=== PATIENT | male | born 1965 | race Hispanic/Latino ===

== ENCOUNTER 2020-01-24 07:56 | Outpatient (RCR) | payer OTHER | END 2020-01-26 | LOC: PT 07:56 | PROVIDERS: ATTEND Specialist | DX: M17.12 Unilateral primary osteoarthritis, left knee (principal); M24.662 Ankylosis, left knee | CPT/HCPCS: 97139 ==

== ENCOUNTER 2020-01-29 08:00 | Outpatient (RCR) | payer OTHER | END 2020-02-26 | LOC: PT 08:00 | PROVIDERS: ATTEND Specialist | DX: M17.12 Unilateral primary osteoarthritis, left knee (principal); M24.662 Ankylosis, left knee ==

== ENCOUNTER → 2021-08-25 | Outpatient (CLI) | payer OTHER ==
[~2021-08-25] MED LIST: ALBUTEROL0.63 MG/3 NEB; AMLODIPINE BESYL5 MG PO; FINASTERIDE5 MG PO; FLOMAX0.4 MG PO; IOPAMIDOL 370 MG/ML 200 ML INFUS..BTL INJ ONE; JOINT HEALTH PO; LORATADINE10 MG PO; SIMVASTATIN40 MG PO; SODIUM CHLORIDE 0.9% 50ML 50 ML ONE; SYMBICORT 16010.2 GM INH; TYLENOL EXTRA500 MG PO
[2021-08-25 16:38] LABS: CREATININE, SERUM 0.85 mg/dL (0.72-1.25)
== END ==
LOC: CT 15:36
PROVIDERS: ATTEND Urology
DX: C67.9 Malignant neoplasm of bladder, unspecified (principal)
CPT/HCPCS: 36415; 74178; 82565; 84520; Q9967

== ENCOUNTER → 2021-08-26 | Day surgery (SDC) | payer OTHER ==
[2021-08-24 15:00] LABS: BASOPHILS % 0.3 % (0.0-1.0); EOSINOPHILS # (AUTO) 0.1 (0.0-0.4); EOSINOPHILS % 1.2 % (0.0-6.0); HEMATOCRIT 45.2 % (38.2-49.6); HEMOGLOBIN 15.5 g/dL (14.0-18.0); LYMPHOCYTES # (AUTO) 2.1 (1.0-3.2); LYMPHOCYTES % 17.3 % (18.0-39.1); MEAN CORPUSCULAR HEMOGLOBIN 28.7 pg (28-32); MEAN CORPUSCULAR HGB CONC 34.3 g/dL (31-35); MEAN CORPUSCULAR VOLUME 83.5 fL (81-99); MONOCYTES # (AUTO) 0.8 (0.2-0.8); NEUTROPHILS # (AUTO) 8.7 (2.1-6.9); NEUTROPHILS % 73.4 % (38.7-80.0); PLATELET COUNT 286 x10e3/uL (140-360); RED BLOOD COUNT 5.41 x10e6/uL (4.3-5.7); RED CELL DISTRIBUTION WIDTH 13.7 % (11.7-14.4)
[~2021-08-26] MED LIST changes: +BELLADONNA/OPIUM 30 MG SUPP RC ONE; +IOPAMIDOL 300MG/ML 50ML INFUS..BTL IV ONE; -IOPAMIDOL 370 MG/ML 200 ML INFUS..BTL INJ ONE; +SUGAMMADEX SODIUM 200 MG/2 ML VIAL IV ONE
[2021-08-26 11:25] VITALS: BP 127/78
== END | disposition home or self-care (01) ==
LOC: OR 06:28
PROVIDERS: ATTEND Urology
DX: C67.9 Malignant neoplasm of bladder, unspecified (principal); N40.0 Benign prostatic hyperplasia without lower urinary tract symptoms; N32.89 Other specified disorders of bladder; K21.9 Gastro-esophageal reflux disease without esophagitis; J45.909 Unspecified asthma, uncomplicated; I10 Essential (primary) hypertension; Z01.810 Encounter for preprocedural cardiovascular examination; Z01.812 Encounter for preprocedural laboratory examination; Z01.818 Encounter for other preprocedural examination; Z20.822 Contact with and (suspected) exposure to COVID-19
CPT/HCPCS: 36415; 52005; 52240; 71046; 74420; 85025; 88307; 93005; C1758 ×2; J0690; Q9967; U0002; 88304

== ENCOUNTER 2021-10-26 07:00 | Outpatient (RCR) | payer OTHER ==
[~2021-10-26 07:00] MED LIST changes: -BELLADONNA/OPIUM 30 MG SUPP RC ONE; -IOPAMIDOL 300MG/ML 50ML INFUS..BTL IV ONE; -SODIUM CHLORIDE 0.9% 50ML 50 ML ONE; -SUGAMMADEX SODIUM 200 MG/2 ML VIAL IV ONE
== END 2021-10-27 ==
LOC: PT 07:00
PROVIDERS: ATTEND Specialist
DX: M17.0 Bilateral primary osteoarthritis of knee (principal)

== ENCOUNTER 2021-11-17 08:00 | Outpatient (RCR) | payer OTHER | END 2021-11-27 | LOC: PT 08:00 | PROVIDERS: ATTEND Specialist | DX: M17.0 Bilateral primary osteoarthritis of knee (principal) ==

== ENCOUNTER → 2022-02-10 | Day surgery (SDC) | payer OTHER ==
[~2022-02-10] MED LIST changes: +DEXAMETHASONE SOD PHOS INJ 4 MG/ML SDV ONE; +FENTANYL CITRATE/PF 100MCG/2 ML INJ ONE; +LIDOCAINE HCL 2% LOCAL INJ 5 ML SDV VIAL INJ ONE; +MIDAZOLAM HCL 2 MG/2 ML VIAL ONE; +ONDANSETRON HCL INJ 2MG/ML 2ML 2 MG/ML VIAL ONE; +POVIDONE IODINE 0.05% 0.05 % ML PO ONE; +PROPOFOL IV EMULSION 10 MG/ML 20 ML VIAL ONE; +SEVOFLURANE INHAL SOLN 250 ML PEN BTL ONE; +SODIUM CHLORIDE 0.9% 50ML 50 ML ONE
[2022-02-10 11:30] VITALS: BP 121/92
== END | disposition home or self-care (01) ==
LOC: OR 07:54
PROVIDERS: ATTEND Urology
DX: N20.0 Calculus of kidney (principal); N13.30 Unspecified hydronephrosis; I10 Essential (primary) hypertension; E78.5 Hyperlipidemia, unspecified; R06.02 Shortness of breath; U09.9 Post COVID-19 condition, unspecified; E66.9 Obesity, unspecified; Z01.810 Encounter for preprocedural cardiovascular examination; Z01.812 Encounter for preprocedural laboratory examination; Z20.822 Contact with and (suspected) exposure to COVID-19; Z79.899 Other long term (current) drug therapy
CPT/HCPCS: 74420; 93005; C1758; C1769; C2617; J0690; J1100; J2001; J2250; J2405; J3010; U0002

== ENCOUNTER 2022-02-22 11:42 | Inpatient (IN) | payer OTHER ==
[~2022-02-22] VITALS: Ht 165.1 cm; Wt 98.0 kg
[~2022-02-22 11:42] MED LIST changes: -DEXAMETHASONE SOD PHOS INJ 4 MG/ML SDV ONE; -FENTANYL CITRATE/PF 100MCG/2 ML INJ ONE; -LIDOCAINE HCL 2% LOCAL INJ 5 ML SDV VIAL INJ ONE; -MIDAZOLAM HCL 2 MG/2 ML VIAL ONE; -ONDANSETRON HCL INJ 2MG/ML 2ML 2 MG/ML VIAL ONE; -POVIDONE IODINE 0.05% 0.05 % ML PO ONE; -PROPOFOL IV EMULSION 10 MG/ML 20 ML VIAL ONE; -SEVOFLURANE INHAL SOLN 250 ML PEN BTL ONE; -SODIUM CHLORIDE 0.9% 50ML 50 ML ONE
[2022-02-22] MEDS ORDERED: SODIUM CHLORIDE 0.9% 1000ML 1,000 ML IV STA (12:13)
[2022-02-22] MEDS ORDERED: Morphine 4mg Syringe 4 MG/ML INJ IV STA (12:13)
[2022-02-22] MEDS ORDERED: ONDANSETRON HCL INJ 2MG/ML 2ML 2 MG/ML VIAL IV STA (12:13)
[2022-02-22] MEDS ORDERED: CEFTRIAXONE 1 GM VIAL IM ONE (12:15)
[2022-02-22 12:23] LABS: BASOPHILS % 0.2 % (0.0-1.0); EOSINOPHILS % 0.1 % (0.0-6.0); HEMATOCRIT 45.7 % (38.2-49.6); HEMOGLOBIN 15.8 g/dL (14.0-18.0); LYMPHOCYTES # (AUTO) 0.5 (1.0-3.2); LYMPHOCYTES % 2.3 % (18.0-39.1); MEAN CORPUSCULAR HEMOGLOBIN 29.4 pg (28-32); MEAN CORPUSCULAR HGB CONC 34.6 g/dL (31-35); MEAN CORPUSCULAR VOLUME 85.1 fL (81-99); MONOCYTES # (AUTO) 0.6 (0.2-0.8); MONOCYTES % 2.9 % (4.4-11.3); NEUTROPHILS # (AUTO) 19.4 (2.1-6.9); PLATELET COUNT 196 x10e3/uL (140-360); RED BLOOD COUNT 5.37 x10e6/uL (4.3-5.7); RED CELL DISTRIBUTION WIDTH 14.1 % (11.7-14.4)
[2022-02-22] MEDS ORDERED: CEFTRIAXONE 1 GM in SODIUM CHLORIDE 0.9% 50ML 50 ML IV ONE (12:30)
[2022-02-22 12:31] LABS: INR 1.09; PROTHROMBIN TIME 15.1 seconds (11.9-14.5)
[2022-02-22] MEDS ORDERED: SODIUM CHLORIDE 0.9% 1000ML 1,000 ML ONE (12:36)
[2022-02-22] MEDS ORDERED: Morphine 2mg Syringe 2 MG/ML SYR ONE (12:36)
[2022-02-22] MEDS ORDERED: ONDANSETRON HCL INJ 2MG/ML 2ML 2 MG/ML VIAL ONE (12:36)
[2022-02-22] MEDS ORDERED: CEFTRIAXONE 1 GM VIAL ONE (12:36)
[2022-02-22 12:39] LABS: CLARITY,URINE TURBID (CLEAR); COLOR,URINE BROWN (YELLOW); LEUKOCYTE ESTERASE ,URINE SMALL (NEGATIVE)
[2022-02-22 12:40] LABS: ALBUMIN 3.5 g/dL (3.5-5.0); ALBUMIN/GLOBULIN RATIO 1.1 (0.8-2.0); ANION GAP 11.3 mmol/L (8-16); CALCIUM 8.7 mg/dL (8.4-10.2); CREATININE, SERUM 0.8 mg/dL (0.72-1.25); KETONES,URINE TRACE (NEGATIVE); NITRITE,URINE POSITIVE (NEGATIVE); POTASSIUM 3.3 mmol/L (3.5-5.1); PROTEIN,URINE DIPSTICK >=300 (NEGATIVE); URINE UROBILINOGEN 1 mg/dL (0.2 - 1)
[2022-02-22 12:43] LABS: RBC,URINE >50 /HPF (0-5); WBC,URINE (MAN) >50 /HPF (0-5)
[2022-02-22 12:44] LABS: BACTERIA,URINE MANY /HPF; EPITHELIAL CELLS,URINE FEW /LPF
[2022-02-22] MEDS ORDERED: SODIUM CHLORIDE 0.9% 1000ML 1,000 ML IV SCH ×2 (13:45→14:30)
[2022-02-22] MEDS ORDERED: LEVOFLOXACIN 500MG/D5W 100ML 100 ML IV SCH (14:30)
[2022-02-22 16:15] VITALS: BP 108/82
[2022-02-22 16:30] VITALS: BP 108/82
[2022-02-22] MEDS ORDERED: LEVOFLOXACIN 500MG/D5W 100ML 100 ML IV ONE (17:38)
[2022-02-22] MEDS: Morphine 4mg Syringe 4 MG/ML INJ IV PRN (19:30)
[2022-02-22] MEDS: ONDANSETRON HCL INJ 2MG/ML 2ML 2 MG/ML VIAL IV PRN (19:30)
[2022-02-22 19:58] VITALS: BP 128/96
[2022-02-22 20:30] VITALS: BP 128/96
[2022-02-22] MEDS ORDERED: POTASSIUM CHLORIDE 10MEQ EA PO ONE (20:30)
[2022-02-23] VITALS (9 sets, daily range): BP systolic 114–155; BP diastolic 70–98
[2022-02-23] MEDS: SODIUM CHLORIDE 0.9% 1000ML 1,000 ML IV SCH ×3 (01:02→18:13)
[2022-02-23] MEDS: ACETAMINOPHEN 325 MG TAB PO PRN ×2 (04:30→21:04)
[2022-02-23 05:02] LABS: BASOPHILS # (AUTO) 0.1 (0.0-0.1); BASOPHILS % 0.3 % (0.0-1.0); EOSINOPHILS # (AUTO) 0.1 (0.0-0.4); EOSINOPHILS % 0.3 % (0.0-6.0); HEMATOCRIT 43.8 % (38.2-49.6); HEMOGLOBIN 15.1 g/dL (14.0-18.0); LYMPHOCYTES # (AUTO) 0.9 (1.0-3.2); LYMPHOCYTES % 3.8 % (18.0-39.1); MEAN CORPUSCULAR HEMOGLOBIN 29.4 pg (28-32); MEAN CORPUSCULAR HGB CONC 34.5 g/dL (31-35); MEAN CORPUSCULAR VOLUME 85.2 fL (81-99); MONOCYTES # (AUTO) 1.2 (0.2-0.8); MONOCYTES % 5.2 % (4.4-11.3); NEUTROPHILS # (AUTO) 20.6 (2.1-6.9); NEUTROPHILS % 89.3 % (38.7-80.0); PLATELET COUNT 197 x10e3/uL (140-360); RED BLOOD COUNT 5.14 x10e6/uL (4.3-5.7); RED CELL DISTRIBUTION WIDTH 14.2 % (11.7-14.4)
[2022-02-23 05:30] LABS: ALBUMIN 3.2 g/dL (3.5-5.0); ALBUMIN/GLOBULIN RATIO 0.9 (0.8-2.0); ANION GAP 14.6 mmol/L (8-16); CALCIUM 9.1 mg/dL (8.4-10.2); CREATININE, SERUM 0.82 mg/dL (0.72-1.25); POTASSIUM 3.6 mmol/L (3.5-5.1)
[2022-02-23] MEDS ORDERED: CALCIUM GLUC 1 G/50 ML NACL 50 ML IV ONE (06:15)
[2022-02-23] MEDS ORDERED: ACETAMINOPHEN 325 MG TAB PO PRN (09:00)
[2022-02-23] MEDS ORDERED: BUDESONIDE/FORMOTEROL 160/4.5MCG INHALER INH PRN (09:00)
[2022-02-23] MEDS ORDERED: ALBUTEROL SULF 0.083% NEB SOLN 3 ML NEB NEB PRN (09:00)
[2022-02-23] MEDS ORDERED: PHENAZOPYRIDINE HCL 100 MG TAB PO PRN (09:30)
[2022-02-23] MEDS: LORATADINE 10 MG TAB PO SCH (10:13)
[2022-02-23] MEDS: FINASTERIDE 5 MG TAB PO SCH (10:13)
[2022-02-23] MEDS: CEFTRIAXONE 1 GM in SODIUM CHLORIDE 0.9% 50ML 50 ML IV SCH (10:13)
[2022-02-23] MEDS: TAMSULOSIN HCL 0.4 MG CAP PO SCH (10:13)
[2022-02-23] MEDS: AMLODIPINE BESYLATE 5 MG TAB PO SCH ×2 (10:13→18:13)
[2022-02-23] MEDS: Morphine 4mg Syringe 4 MG/ML INJ IV PRN (19:20)
[2022-02-23] MEDS: ONDANSETRON HCL INJ 2MG/ML 2ML 2 MG/ML VIAL IV PRN (19:20)
[2022-02-23] MEDS: SIMVASTATIN 40 MG TAB PO SCH (21:04)
[2022-02-24] VITALS (8 sets, daily range): BP systolic 99–136; BP diastolic 60–97
[2022-02-24] MEDS: SODIUM CHLORIDE 0.9% 1000ML 1,000 ML IV SCH ×3 (02:13→17:15)
[2022-02-24] MEDS: Morphine 4mg Syringe 4 MG/ML INJ IV PRN ×5 (02:13→19:50)
[2022-02-24] MEDS: ACETAMINOPHEN 325 MG TAB PO PRN ×4 (02:13→20:27)
[2022-02-24 04:58] LABS: BASOPHILS % 0.3 % (0.0-1.0); EOSINOPHILS % 0.1 % (0.0-6.0); HEMATOCRIT 40.6 % (38.2-49.6); HEMOGLOBIN 13.8 g/dL (14.0-18.0); LYMPHOCYTES % 9.2 % (18.0-39.1); MEAN CORPUSCULAR HEMOGLOBIN 29.3 pg (28-32); MEAN CORPUSCULAR VOLUME 86.2 fL (81-99); MONOCYTES # (AUTO) 0.9 (0.2-0.8); MONOCYTES % 8.2 % (4.4-11.3); NEUTROPHILS % 81.3 % (38.7-80.0); PLATELET COUNT 174 x10e3/uL (140-360); RED BLOOD COUNT 4.71 x10e6/uL (4.3-5.7); RED CELL DISTRIBUTION WIDTH 14.4 % (11.7-14.4)
[2022-02-24] MEDS: CEFTRIAXONE 1 GM in SODIUM CHLORIDE 0.9% 50ML 50 ML IV SCH (09:05)
[2022-02-24] MEDS: AMLODIPINE BESYLATE 5 MG TAB PO SCH ×2 (09:05→17:00)
[2022-02-24] MEDS: TAMSULOSIN HCL 0.4 MG CAP PO SCH (09:05)
[2022-02-24] MEDS: LORATADINE 10 MG TAB PO SCH (09:05)
[2022-02-24] MEDS: FINASTERIDE 5 MG TAB PO SCH (09:05)
[2022-02-24] MEDS: SIMVASTATIN 40 MG TAB PO SCH (20:26)
[2022-02-25] VITALS (7 sets, daily range): BP systolic 106–154; BP diastolic 69–96
[2022-02-25] MEDS: Morphine 4mg Syringe 4 MG/ML INJ IV PRN ×2 (01:20→09:25)
[2022-02-25] MEDS: ACETAMINOPHEN 325 MG TAB PO PRN ×3 (02:27→20:20)
[2022-02-25] MEDS: SODIUM CHLORIDE 0.9% 1000ML 1,000 ML IV SCH (03:00)
[2022-02-25 04:59] LABS: BASOPHILS # (AUTO) 0.1 (0.0-0.1); BASOPHILS % 0.7 % (0.0-1.0); EOSINOPHILS # (AUTO) 0.1 (0.0-0.4); EOSINOPHILS % 0.7 % (0.0-6.0); HEMATOCRIT 42.1 % (38.2-49.6); HEMOGLOBIN 14.3 g/dL (14.0-18.0); LYMPHOCYTES # (AUTO) 1.5 (1.0-3.2); LYMPHOCYTES % 18.9 % (18.0-39.1); MEAN CORPUSCULAR HEMOGLOBIN 28.9 pg (28-32); MEAN CORPUSCULAR VOLUME 85.2 fL (81-99); MONOCYTES # (AUTO) 0.9 (0.2-0.8); MONOCYTES % 11.8 % (4.4-11.3); NEUTROPHILS # (AUTO) 5.1 (2.1-6.9); NEUTROPHILS % 66.5 % (38.7-80.0); PLATELET COUNT 179 x10e3/uL (140-360); RED BLOOD COUNT 4.94 x10e6/uL (4.3-5.7); RED CELL DISTRIBUTION WIDTH 14.4 % (11.7-14.4)
[2022-02-25] MEDS ORDERED: GENTAMICIN 120MG/NS 100ML 100 ML IV ONE ×2 (07:30→10:30)
[2022-02-25] MEDS: LORATADINE 10 MG TAB PO SCH (08:56)
[2022-02-25] MEDS: TAMSULOSIN HCL 0.4 MG CAP PO SCH (08:56)
[2022-02-25] MEDS: FINASTERIDE 5 MG TAB PO SCH (08:56)
[2022-02-25] MEDS: AMLODIPINE BESYLATE 5 MG TAB PO SCH ×2 (08:56→17:18)
[2022-02-25] MEDS ORDERED: LISINOPRIL 10 MG TAB PO SCH (09:00)
[2022-02-25] MEDS: CEFTRIAXONE 1 GM in SODIUM CHLORIDE 0.9% 50ML 50 ML IV SCH (09:10)
[2022-02-25] MEDS: SIMVASTATIN 40 MG TAB PO SCH (20:21)
[2022-02-26] VITALS (8 sets, daily range): BP systolic 117–127; BP diastolic 77–98
[2022-02-26] MEDS: TAMSULOSIN HCL 0.4 MG CAP PO SCH (09:00)
[2022-02-26] MEDS: LORATADINE 10 MG TAB PO SCH (09:00)
[2022-02-26] MEDS: AMLODIPINE BESYLATE 5 MG TAB PO SCH ×2 (09:00→16:19)
[2022-02-26] MEDS: FINASTERIDE 5 MG TAB PO SCH (09:00)
[2022-02-26] MEDS: CEFTRIAXONE 1 GM in SODIUM CHLORIDE 0.9% 50ML 50 ML IV SCH (09:13)
[2022-02-26] MEDS ORDERED: LIDOCAINE HCL 2% LOCAL INJ 5 ML SDV VIAL INJ ONE (12:08)
[2022-02-26] MEDS ORDERED: POVIDONE IODINE 0.05% 0.05 % ML PO ONE (12:08)
[2022-02-26] MEDS ORDERED: SEVOFLURANE INHAL SOLN 250 ML PEN BTL ONE (12:08)
[2022-02-26] MEDS ORDERED: ONDANSETRON HCL INJ 2MG/ML 2ML 2 MG/ML VIAL ONE (12:08)
[2022-02-26] MEDS ORDERED: KETOROLAC TROMETHAMINE 30 MG/ML VIAL ONE (12:08)
[2022-02-26] MEDS ORDERED: PROPOFOL IV EMULSION 10 MG/ML 20 ML VIAL ONE (12:08)
[2022-02-26] MEDS ORDERED: ONDANSETRON HCL 4 MG ORAL DISINTEGRATING TAB PO PRN (13:15)
[2022-02-26] MEDS: Morphine 4mg Syringe 4 MG/ML INJ IV PRN (20:55)
[2022-02-26] MEDS: SIMVASTATIN 40 MG TAB PO SCH (21:00)
[2022-02-27] VITALS (7 sets, daily range): BP systolic 111–127; BP diastolic 79–96
[2022-02-27] MEDS ORDERED: BELLADONNA/OPIUM 30 MG SUPP RC ONE (07:31)
[2022-02-27] MEDS ORDERED: IOPAMIDOL 300MG/ML 50ML INFUS..BTL IV ONE (07:31)
[2022-02-27] MEDS ORDERED: ACETAMINOPHEN 1000 MG/100 ML 100 ML IV ONE (08:33)
[2022-02-27] MEDS: TAMSULOSIN HCL 0.4 MG CAP PO SCH ×2 (08:44→09:46)
[2022-02-27] MEDS: AMLODIPINE BESYLATE 5 MG TAB PO SCH ×3 (08:44→16:10)
[2022-02-27] MEDS: LORATADINE 10 MG TAB PO SCH ×2 (08:44→09:46)
[2022-02-27] MEDS: FINASTERIDE 5 MG TAB PO SCH ×2 (08:44→09:46)
[2022-02-27] MEDS: CEFTRIAXONE 1 GM in SODIUM CHLORIDE 0.9% 50ML 50 ML IV SCH (09:46)
[2022-02-27] MEDS ORDERED: KEFLEX125 MG/5 M PO (14:55)
[2022-02-27] MEDS ORDERED: FENTANYL CITRATE/PF 100MCG/2 ML INJ ONE (17:42)
[2022-02-27] MEDS ORDERED: MIDAZOLAM HCL 2 MG/2 ML VIAL ONE (17:42)
== END 2022-02-27 16:39 | disposition home or self-care (01) | DRG 854 ==
LOC: ER 12:13 → ERHOLD 14:28 → MED/SURG2 16:09
PROVIDERS: ADMIT Internal Medicine; ATTEND Internal Medicine
PROC: 3E03329 Introduction of Other Anti-infective into Peripheral Vein, Percutaneous Approach (ICD-10-PCS; 2022-02-22)
PROC: BT1F1ZZ Fluoroscopy of Left Kidney, Ureter and Bladder using Low Osmolar Contrast (ICD-10-PCS; 2022-02-27)
PROC: 0TP98DZ Removal of Intraluminal Device from Ureter, Via Natural or Artificial Opening Endoscopic (ICD-10-PCS; principal; 2022-02-27 08:06)
PROC: 0W3R8ZZ Control Bleeding in Genitourinary Tract, Via Natural or Artificial Opening Endoscopic (ICD-10-PCS; 2022-02-27 08:06)
DX: A41.51 Sepsis due to Escherichia coli [E. coli] (principal); N39.0 Urinary tract infection, site not specified; T83.593A Infection and inflammatory reaction due to other urinary stents, initial encounter; R31.9 Hematuria, unspecified; N40.0 Benign prostatic hyperplasia without lower urinary tract symptoms; E78.5 Hyperlipidemia, unspecified; E87.6 Hypokalemia; Z85.51 Personal history of malignant neoplasm of bladder; E66.01 Morbid (severe) obesity due to excess calories; Z68.39 Body mass index [BMI] 39.0-39.9, adult; K52.9 Noninfective gastroenteritis and colitis, unspecified; K76.0 Fatty (change of) liver, not elsewhere classified; Z96.0 Presence of urogenital implants; Z20.822 Contact with and (suspected) exposure to COVID-19
CPT/HCPCS: 36415; 71045; 74176; 74420; 80053; 81001; 83605; 85025; 85610; 85730; 87040; 87071; 87086; 87186; 87205; 88305; 88307; 93005; 94799; 96361; 99284; C1758; J0696; J1580; J1885; J1956; J2001; J2250; J2270; J2405; J3010; J7030; U0002

== ENCOUNTER 2022-05-01 03:59 | Observation (INO) | payer OTHER ==
[~2022-05-01] VITALS: Ht 165.1 cm; Wt 98.0 kg
[2022-05-01] VITALS (9 sets, daily range): BP systolic 104–126; BP diastolic 73–89
[~2022-05-01 03:59] MED LIST changes: +KEFLEX125 MG/5 M PO
[2022-05-01] MEDS ORDERED: SODIUM CHLORIDE 0.9% 1000ML 1,000 ML IV ONE (04:15)
[2022-05-01 04:25] LABS: BASOPHILS % 0.2 % (0.0-1.0); EOSINOPHILS % 0.2 % (0.0-6.0); HEMATOCRIT 45.3 % (38.2-49.6); HEMOGLOBIN 15.3 g/dL (14.0-18.0); LYMPHOCYTES # (AUTO) 1.1 (1.0-3.2); LYMPHOCYTES % 5.8 % (18.0-39.1); MEAN CORPUSCULAR HEMOGLOBIN 29.3 pg (28-32); MEAN CORPUSCULAR HGB CONC 33.8 g/dL (31-35); MEAN CORPUSCULAR VOLUME 86.6 fL (81-99); MONOCYTES # (AUTO) 1.3 (0.2-0.8); MONOCYTES % 7.1 % (4.4-11.3); NEUTROPHILS # (AUTO) 16.3 (2.1-6.9); NEUTROPHILS % 85.9 % (38.7-80.0); PLATELET COUNT 193 x10e3/uL (140-360); RED BLOOD COUNT 5.23 x10e6/uL (4.3-5.7); RED CELL DISTRIBUTION WIDTH 14.1 % (11.7-14.4)
[2022-05-01 04:30] LABS: CLARITY,URINE CLOUDY (CLEAR); COLOR,URINE YELLOW (YELLOW); KETONES,URINE NEGATIVE (NEGATIVE); LEUKOCYTE ESTERASE ,URINE LARGE (NEGATIVE); NITRITE,URINE NEGATIVE (NEGATIVE); PROTEIN,URINE DIPSTICK 2+ (NEGATIVE); URINE UROBILINOGEN 0.2 mg/dL (0.2 - 1)
[2022-05-01 04:35] LABS: BACTERIA,URINE MODERATE /HPF; EPITHELIAL CELLS,URINE RARE /LPF; WBC,URINE (MAN) >50 /HPF (0-5)
[2022-05-01] MEDS ORDERED: SODIUM CHLORIDE 0.9% 1000ML 1,000 ML ONE (04:42)
[2022-05-01 04:44] LABS: ALBUMIN 3.7 g/dL (3.5-5.0); ALBUMIN/GLOBULIN RATIO 1.2 (0.8-2.0); ANION GAP 14.1 mmol/L (8-16); CALCIUM 8.7 mg/dL (8.4-10.2); CREATININE, SERUM 0.9 mg/dL (0.72-1.25); POTASSIUM 3.1 mmol/L (3.5-5.1)
[2022-05-01] MEDS ORDERED: ONDANSETRON HCL INJ 2MG/ML 2ML 2 MG/ML VIAL IV PRN (04:45)
[2022-05-01] MEDS: SODIUM CHLORIDE 0.9% 1000ML 1,000 ML IV SCH ×3 (04:45→22:38)
[2022-05-01] MEDS ORDERED: ACETAMINOPHEN 325 MG TAB PO PRN (04:45)
[2022-05-01] MEDS ORDERED: AMLODIPINE BESY10 MG PO (08:15)
[2022-05-01] MEDS ORDERED: MELATONIN 3 MG TAB PO PRN (13:30)
[2022-05-01] MEDS ORDERED: DOCUSATE SODIUM LIQD 100 MG/10 ML UDC NG PRN (13:30)
[2022-05-01] MEDS ORDERED: DOCUSATE SODIUM LIQD 100 MG/10 ML UDC NG ONE ×2 (14:00→18:00)
[2022-05-02] VITALS (7 sets, daily range): BP systolic 112–150; BP diastolic 78–93
[2022-05-02 06:50] LABS: BASOPHILS % 0.1 % (0.0-1.0); EOSINOPHILS # (AUTO) 0.2 (0.0-0.4); HEMOGLOBIN 13.9 g/dL (14.0-18.0); LYMPHOCYTES # (AUTO) 2.4 (1.0-3.2); LYMPHOCYTES % 11.7 % (18.0-39.1); MEAN CORPUSCULAR HEMOGLOBIN 29.3 pg (28-32); MEAN CORPUSCULAR HGB CONC 33.1 g/dL (31-35); MEAN CORPUSCULAR VOLUME 88.4 fL (81-99); MONOCYTES # (AUTO) 1.5 (0.2-0.8); MONOCYTES % 7.3 % (4.4-11.3); NEUTROPHILS # (AUTO) 16.1 (2.1-6.9); NEUTROPHILS % 79.4 % (38.7-80.0); PLATELET COUNT 199 x10e3/uL (140-360); RED BLOOD COUNT 4.75 x10e6/uL (4.3-5.7); RED CELL DISTRIBUTION WIDTH 14.6 % (11.7-14.4)
[2022-05-02 07:18] LABS: ALBUMIN/GLOBULIN RATIO 0.9 (0.8-2.0); ANION GAP 13.5 mmol/L (8-16); CALCIUM 8.1 mg/dL (8.4-10.2); CREATININE, SERUM 0.72 mg/dL (0.72-1.25); POTASSIUM 3.5 mmol/L (3.5-5.1)
[2022-05-02] MEDS: SODIUM CHLORIDE 0.9% 1000ML 1,000 ML IV SCH ×3 (08:16→18:42)
[2022-05-03] VITALS: BP 127/81
[2022-05-03 04:00] VITALS: BP 101/64
[2022-05-03 06:01] LABS: BASOPHILS # (AUTO) 0.1 (0.0-0.1); BASOPHILS % 0.4 % (0.0-1.0); EOSINOPHILS # (AUTO) 0.2 (0.0-0.4); EOSINOPHILS % 1.3 % (0.0-6.0); HEMATOCRIT 42.5 % (38.2-49.6); HEMOGLOBIN 14.1 g/dL (14.0-18.0); LYMPHOCYTES # (AUTO) 2.2 (1.0-3.2); LYMPHOCYTES % 18.8 % (18.0-39.1); MEAN CORPUSCULAR HEMOGLOBIN 29.2 pg (28-32); MEAN CORPUSCULAR HGB CONC 33.2 g/dL (31-35); MONOCYTES % 8.7 % (4.4-11.3); NEUTROPHILS # (AUTO) 8.4 (2.1-6.9); NEUTROPHILS % 69.9 % (38.7-80.0); PLATELET COUNT 217 x10e3/uL (140-360); RED BLOOD COUNT 4.83 x10e6/uL (4.3-5.7); RED CELL DISTRIBUTION WIDTH 14.6 % (11.7-14.4)
[2022-05-03 06:25] LABS: ANION GAP 12.5 mmol/L (8-16); CALCIUM 8.7 mg/dL (8.4-10.2); CREATININE, SERUM 0.76 mg/dL (0.72-1.25); POTASSIUM 3.5 mmol/L (3.5-5.1)
[2022-05-03] MEDS: SODIUM CHLORIDE 0.9% 1000ML 1,000 ML IV SCH (06:49)
[2022-05-03 08:06] VITALS: BP 114/89
[2022-05-03 08:28] VITALS: BP 114/89
[2022-05-03] MEDS ORDERED: PSYLLIUM 6GM PACKET PO SCH (09:00)
[2022-05-03] MEDS ORDERED: ACETAMINOPHEN325 M1 PO (11:52)
[2022-05-03] MEDS ORDERED: CEFUROXIME500 MG PO (11:52)
== END 2022-05-03 12:40 | disposition home or self-care (01) ==
LOC: ER 04:03 → ERHOLD 04:46 → INTOOBSV 04:46 → MED/SURG2 06:29
PROVIDERS: ADMIT Internal Medicine; ATTEND Internal Medicine
DX: C67.9 Malignant neoplasm of bladder, unspecified (principal); R31.0 Gross hematuria; N40.0 Benign prostatic hyperplasia without lower urinary tract symptoms; N20.0 Calculus of kidney; E66.9 Obesity, unspecified; Z68.35 Body mass index [BMI] 35.0-35.9, adult; N39.0 Urinary tract infection, site not specified; B96.20 Unspecified Escherichia coli [E. coli] as the cause of diseases classified elsewhere; E87.6 Hypokalemia; Z20.822 Contact with and (suspected) exposure to COVID-19
CPT/HCPCS: 36415; 71045; 74176; 80048; 80053; 81001; 83605; 85025; 87040; 87086; 87186; 94799; 96360; 96361; 99284; G0378; J0696; J2543; J7030

== ENCOUNTER 2022-08-18 23:19 | Emergency (ER) | payer OTHER ==
[~2022-08-18] VITALS: Ht 165.1 cm; Wt 99.8 kg
[~2022-08-18 23:19] MED LIST changes: +ACETAMINOPHEN325 M1 PO; +AMLODIPINE BESY10 MG PO; +CEFUROXIME500 MG PO
[2022-08-18] MEDS ORDERED: KETOROLAC TROMETHAMINE 30 MG/ML VIAL IV STA (23:44)
[2022-08-18 23:58] LABS: BASOPHILS % 0.5 % (0.0-1.0); EOSINOPHILS # (AUTO) 0.3 (0.0-0.4); EOSINOPHILS % 3.1 % (0.0-6.0); HEMATOCRIT 44.1 % (38.2-49.6); HEMOGLOBIN 14.9 g/dL (14.0-18.0); LYMPHOCYTES # (AUTO) 2.8 (1.0-3.2); LYMPHOCYTES % 32.6 % (18.0-39.1); MEAN CORPUSCULAR HEMOGLOBIN 29.4 pg (28-32); MEAN CORPUSCULAR HGB CONC 33.8 g/dL (31-35); MONOCYTES # (AUTO) 0.7 (0.2-0.8); MONOCYTES % 8.1 % (4.4-11.3); NEUTROPHILS # (AUTO) 4.8 (2.1-6.9); NEUTROPHILS % 55.4 % (38.7-80.0); PLATELET COUNT 237 x10e3/uL (140-360); RED BLOOD COUNT 5.07 x10e6/uL (4.3-5.7); RED CELL DISTRIBUTION WIDTH 13.8 % (11.7-14.4)
[2022-08-19 00:01] LABS: CLARITY,URINE CLEAR (CLEAR); COLOR,URINE YELLOW (YELLOW); KETONES,URINE TRACE (NEGATIVE); LEUKOCYTE ESTERASE ,URINE NEGATIVE (NEGATIVE); NITRITE,URINE NEGATIVE (NEGATIVE); PROTEIN,URINE DIPSTICK NEGATIVE (NEGATIVE); URINE UROBILINOGEN 0.2 mg/dL (0.2 - 1)
[2022-08-19 00:05] LABS: BACTERIA,URINE RARE /HPF; EPITHELIAL CELLS,URINE MODERATE /LPF; RBC,URINE 0-5 /HPF (0-5)
[2022-08-19 00:15] LABS: ANION GAP 18.7 mmol/L (8-16); CALCIUM 9.2 mg/dL (8.4-10.2); CREATININE, SERUM 1.02 mg/dL (0.72-1.25); POTASSIUM 3.7 mmol/L (3.5-5.1)
[2022-08-19 01:01] VITALS: BP 128/81
[2022-08-19] MEDS ORDERED: CEFDINIR300 MG PO (01:01)
== END 2022-08-19 01:10 | disposition home or self-care (01) ==
LOC: ER 23:31
DX: R10.30 Lower abdominal pain, unspecified (principal); N20.0 Calculus of kidney; N39.0 Urinary tract infection, site not specified
CPT/HCPCS: 36415; 74176; 80048; 81001; 85025; 99284; J1885

== ENCOUNTER 2022-10-30 02:04 | Emergency (ER) | payer OTHER ==
[~2022-10-30] VITALS: Ht 165.1 cm; Wt 99.8 kg
[~2022-10-30 02:04] MED LIST changes: +CEFDINIR300 MG PO
[2022-10-30] MEDS ORDERED: CIPRO HC OTIC S10 ML RIGHT EAR (02:40)
[2022-10-30] MEDS ORDERED: CEFDINIR300 MG PO (02:40)
== END 2022-10-30 02:54 | disposition home or self-care (01) ==
LOC: ER 02:30
DX: J02.9 Acute pharyngitis, unspecified (principal); H66.91 Otitis media, unspecified, right ear; H60.91 Unspecified otitis externa, right ear; I10 Essential (primary) hypertension; N40.0 Benign prostatic hyperplasia without lower urinary tract symptoms; E78.5 Hyperlipidemia, unspecified; Z79.899 Other long term (current) drug therapy; Z85.51 Personal history of malignant neoplasm of bladder; Z87.442 Personal history of urinary calculi; Z87.440 Personal history of urinary (tract) infections; Z87.891 Personal history of nicotine dependence
CPT/HCPCS: 99282

== ENCOUNTER 2024-01-03 19:33 | Emergency (ER) | payer OTHER ==
[~2024-01-03] VITALS: Ht 165.1 cm; Wt 97.1 kg
[~2024-01-03 19:33] MED LIST changes: +CIPRO HC OTIC S10 ML RIGHT EAR; +NAPROXEN250 MG PO
[2024-01-03 20:10] LABS: BASOPHILS % 0.2 % (0.0-1.0); EOSINOPHILS # (AUTO) 0.1 (0.0-0.4); EOSINOPHILS % 0.3 % (0.0-6.0); HEMATOCRIT 43.1 % (38.2-49.6); HEMOGLOBIN 14.4 g/dL (14.0-18.0); LYMPHOCYTES % 12.1 % (18.0-39.1); MEAN CORPUSCULAR HEMOGLOBIN 29.2 pg (28-32); MEAN CORPUSCULAR HGB CONC 33.4 g/dL (31-35); MEAN CORPUSCULAR VOLUME 87.4 fL (81-99); MONOCYTES # (AUTO) 1.4 (0.2-0.8); MONOCYTES % 8.2 % (4.4-11.3); NEUTROPHILS # (AUTO) 12.9 (2.1-6.9); NEUTROPHILS % 78.9 % (38.7-80.0); PLATELET COUNT 231 x10e3/uL (140-360); RED BLOOD COUNT 4.93 x10e6/uL (4.3-5.7); RED CELL DISTRIBUTION WIDTH 14.1 % (11.7-14.4); WHITE BLOOD COUNT 16.41 x10e3/uL (4.8-10.8)
[2024-01-03 20:14] LABS: BILIRUBIN,URINE NEGATIVE (NEGATIVE); CLARITY,URINE CLEAR (CLEAR); COLOR,URINE YELLOW (YELLOW); GLUCOSE, URINE NEGATIVE (NEGATIVE); KETONES,URINE NEGATIVE (NEGATIVE); LEUKOCYTE ESTERASE ,URINE NEGATIVE (NEGATIVE); NITRITE,URINE NEGATIVE (NEGATIVE); PH,URINE 6 (5 - 7); PROTEIN,URINE DIPSTICK NEGATIVE (NEGATIVE); URINE UROBILINOGEN 0.2 mg/dL (0.2 - 1)
[2024-01-03 20:23] LABS: WBC,URINE (MAN) 0-5 /HPF (0-5)
[2024-01-03 20:33] LABS: ALBUMIN 3.7 g/dL (3.5-5.0); ALBUMIN/GLOBULIN RATIO 1.2 (0.8-2.0); ANION GAP 13.4 mmol/L (8-16); BILIRUBIN,TOTAL 0.5 mg/dL (0.2-1.2); CALCIUM 8.8 mg/dL (8.4-10.2); CREATININE, SERUM 0.97 mg/dL (0.72-1.25); TOTAL PROTEIN 6.7 g/dL (6.5-8.1)
[2024-01-03 20:35] LABS: POTASSIUM 3.4 mmol/L (3.5-5.1)
[2024-01-03] MEDS: ONDANSETRON HCL INJ 2MG/ML 2ML 2 MG/ML VIAL IV STA (20:53)
[2024-01-03] MEDS: SODIUM CHLORIDE 0.9% 1000ML 1,000 ML IV STA (20:53)
[2024-01-03] MEDS: KETOROLAC TROMETHAMINE 30 MG/ML VIAL IV STA (20:56)
[2024-01-03 22:59] VITALS: O2SAT 98
== END 2024-01-03 23:13 | disposition home or self-care (01) ==
LOC: ER 19:39
DX: R30.0 Dysuria (principal); N39.0 Urinary tract infection, site not specified; D72.829 Elevated white blood cell count, unspecified; R10.30 Lower abdominal pain, unspecified; I10 Essential (primary) hypertension; E78.5 Hyperlipidemia, unspecified; Z85.51 Personal history of malignant neoplasm of bladder
CPT/HCPCS: 36415; 74176; 80053; 81001; 83690; 85025; 99284; J1885; J2405; J7030

== ENCOUNTER → 2024-10-01 | Day surgery (SDC) | payer OTHER ==
[2024-09-26 09:24] LABS: BASOPHILS # (AUTO) 0.1 (0.0-0.1); BASOPHILS % 0.6 % (0.0-1.0); EOSINOPHILS # (AUTO) 0.2 (0.0-0.4); HEMATOCRIT 50.3 % (38.2-49.6); HEMOGLOBIN 16.5 g/dL (14.0-18.0); LYMPHOCYTES # (AUTO) 1.9 (1.0-3.2); LYMPHOCYTES % 22.2 % (18.0-39.1); MEAN CORPUSCULAR HEMOGLOBIN 29.3 pg (28-32); MEAN CORPUSCULAR HGB CONC 32.8 g/dL (31-35); MEAN CORPUSCULAR VOLUME 89.2 fL (81-99); MONOCYTES # (AUTO) 0.6 (0.2-0.8); MONOCYTES % 6.9 % (4.4-11.3); NEUTROPHILS # (AUTO) 5.7 (2.1-6.9); NEUTROPHILS % 67.9 % (38.7-80.0); PLATELET COUNT 218 x10e3/uL (140-360); RED BLOOD COUNT 5.64 x10e6/uL (4.3-5.7); RED CELL DISTRIBUTION WIDTH 14.6 % (11.7-14.4); WHITE BLOOD COUNT 8.32 x10e3/uL (4.8-10.8)
[2024-09-26 14:48] LABS: ANION GAP 17.5 mmol/L (8-16); CALCIUM 9.7 mg/dL (8.4-10.2); CREATININE, SERUM 0.79 mg/dL (0.72-1.25); POTASSIUM 3.5 mmol/L (3.5-5.1)
[~2024-10-01] MED LIST changes: +ACETAMINOPHEN 1000 MG/100 ML IV PRN; +ASPIRIN 325 MG TAB PO SCH; +ASPIRIN81 MG PO; +CELECOXIB 100 MG CAP PO SCH; +DIPHENHYDRAMINE HCL INJ 50 MG/ML VIAL IV PRN; +DOCUSATE SODIUM 100 MG CAP PO PRN; +HYDROCHLOROTHIA25 MG PO; +HYDROCODONE/APAP 5MG-325MG TAB PO PRN; +HYDROCODONE/APAP 7.5MG-325MG 1 EA TAB PO PRN; +LEVOTHYROXINE50 MCG PO; +LIPITOR10 MG PO; +METFORMIN HCL500 MG PO; +ONDANSETRON HCL INJ 2MG/ML 2ML 2 MG/ML VIAL IV PRN; +PANTOPRAZOLE SO40 MG PO; +ROPIVACAINE/EPI/CLONIDINE/KET 50 ML SYRINGE INJ ONE; +SODIUM CHLORIDE 0.9% 1000ML 1,000 ML IV SCH; +SODIUM CHLORIDE 0.9% 500ML 500 ML ONE; +TRANEXAMIC ACID 20 ML ONE; +Vancomycin IV 500 MG ONE
[2024-10-01] MEDS: GABAPENTIN 300 MG CAP ONE (09:10)
[2024-10-01] MEDS: CELECOXIB 200 MG CAP ONE (09:10)
[2024-10-01] MEDS: CEFAZOLIN SODIUM 2 GM ONE (09:11)
[2024-10-01] MEDS: DEXAMETHASONE SOD PHOS 10 MG/1 ML VIAL ONE (09:11)
[2024-10-01] MEDS: LACTATED RINGER'S 1,000 ML ONE (09:12)
[2024-10-01] MEDS: ACETAMINOPHEN 1000 MG/100 ML 100 ML IV ONE (12:52)
[2024-10-01] MEDS: FENTANYL CITRATE/PF 100MCG/2 ML INJ ONE (13:00)
[2024-10-01 13:20] VITALS: TEMP 97
[2024-10-01 14:00] VITALS: BP 135/77; RESP 18; O2SAT 97
[2024-10-01] MEDS: HYDROCODONE/APAP 7.5MG-325MG 1 EA TAB PO ONE (14:00)
== END | disposition home health service (06) ==
LOC: OR 08:19
PROVIDERS: ATTEND Specialist
DX: M17.12 Unilateral primary osteoarthritis, left knee (principal); I10 Essential (primary) hypertension; J45.909 Unspecified asthma, uncomplicated; E11.9 Type 2 diabetes mellitus without complications; E03.9 Hypothyroidism, unspecified; E66.01 Morbid (severe) obesity due to excess calories; K21.9 Gastro-esophageal reflux disease without esophagitis; Z01.812 Encounter for preprocedural laboratory examination; Z79.84 Long term (current) use of oral hypoglycemic drugs; Z79.1 Long term (current) use of non-steroidal anti-inflammatories (NSAID); Z79.899 Other long term (current) drug therapy; Z68.36 Body mass index [BMI] 36.0-36.9, adult
CPT/HCPCS: 27447; 36415 ×2; 73560; 80048; 82948; 85025; 86850; 86900; 97110; 97116; 97161; 97530; C1713 ×2; C1776 ×3; J0131; J0690; J1100; J2795; J3010; J3370; J7040; J7121

== ENCOUNTER 2024-10-23 07:00 | Outpatient (RCR) | payer OTHER ==
[~2024-10-23 07:00] MED LIST changes: -ACETAMINOPHEN 1000 MG/100 ML IV PRN; -ASPIRIN 325 MG TAB PO SCH; -CELECOXIB 100 MG CAP PO SCH; -DIPHENHYDRAMINE HCL INJ 50 MG/ML VIAL IV PRN; -DOCUSATE SODIUM 100 MG CAP PO PRN; -HYDROCODONE/APAP 5MG-325MG TAB PO PRN; -HYDROCODONE/APAP 7.5MG-325MG 1 EA TAB PO PRN; -ONDANSETRON HCL INJ 2MG/ML 2ML 2 MG/ML VIAL IV PRN; -ROPIVACAINE/EPI/CLONIDINE/KET 50 ML SYRINGE INJ ONE; -SODIUM CHLORIDE 0.9% 1000ML 1,000 ML IV SCH; -SODIUM CHLORIDE 0.9% 500ML 500 ML ONE; -TRANEXAMIC ACID 20 ML ONE; -Vancomycin IV 500 MG ONE
== END 2024-10-27 ==
LOC: PT 07:00
PROVIDERS: ATTEND Physician Assistant
DX: Z47.1 Aftercare following joint replacement surgery (principal); Z96.652 Presence of left artificial knee joint; M62.81 Muscle weakness (generalized); R26.89 Other abnormalities of gait and mobility; M25.562 Pain in left knee; M25.662 Stiffness of left knee, not elsewhere classified

== ENCOUNTER → 2024-11-27 | Outpatient (RCR) | payer OTHER | LOC: PT 10-29 06:46 | PROVIDERS: ATTEND Physician Assistant | DX: Z47.1 Aftercare following joint replacement surgery (principal); Z96.652 Presence of left artificial knee joint; M25.562 Pain in left knee; M25.662 Stiffness of left knee, not elsewhere classified; M62.81 Muscle weakness (generalized); R26.89 Other abnormalities of gait and mobility ==

== ENCOUNTER → 2024-12-28 | Outpatient (RCR) | payer OTHER | LOC: PT 11-30 06:55 | PROVIDERS: ATTEND Physician Assistant | DX: Z47.1 Aftercare following joint replacement surgery (principal); Z96.652 Presence of left artificial knee joint; M62.81 Muscle weakness (generalized) ==

== ENCOUNTER 2025-01-10 22:09 | Emergency (ER) | payer OTHER ==
[~2025-01-10] VITALS: Ht 165.1 cm; Wt 99.8 kg
[2025-01-10 22:15] VITALS: RESP 18; TEMP 98.2
[2025-01-10 22:40] LABS: WHITE BLOOD COUNT 12.78 x10e3/uL (4.8-10.8)
[2025-01-10 22:41] LABS: HEMATOCRIT 44.8 % (38.2-49.6); MEAN CORPUSCULAR HEMOGLOBIN 28.9 pg (28-32); MEAN CORPUSCULAR HGB CONC 35.7 g/dL (31-35); MEAN CORPUSCULAR VOLUME 80.9 fL (81-99); PLATELET COUNT 246 x10e3/uL (140-360); RED BLOOD COUNT 5.54 x10e6/uL (4.3-5.7); RED CELL DISTRIBUTION WIDTH 13.4 % (11.7-14.4)
[2025-01-10 22:42] LABS: BASOPHILS % 0.3 % (0.0-1.0); EOSINOPHILS # (AUTO) 0.2 (0.0-0.4); EOSINOPHILS % 1.4 % (0.0-6.0); LYMPHOCYTES # (AUTO) 2.6 (1.0-3.2); LYMPHOCYTES % 20.5 % (18.0-39.1); MONOCYTES # (AUTO) 0.9 (0.2-0.8); MONOCYTES % 7.2 % (4.4-11.3); NEUTROPHILS % 70.3 % (38.7-80.0)
[2025-01-10 22:53] LABS: BACTERIA,URINE MANY /HPF; BILIRUBIN,URINE NEGATIVE (NEGATIVE); CLARITY,URINE CLOUDY (CLEAR); COLOR,URINE YELLOW (YELLOW); EPITHELIAL CELLS,URINE MODERATE /LPF; GLUCOSE, URINE NEGATIVE (NEGATIVE); KETONES,URINE NEGATIVE (NEGATIVE); LEUKOCYTE ESTERASE ,URINE MODERATE (NEGATIVE); NITRITE,URINE POSITIVE (NEGATIVE); PH,URINE 6 (5 - 7); PROTEIN,URINE DIPSTICK >=300 (NEGATIVE); RBC,URINE >50 /HPF (0-5); URINE UROBILINOGEN 0.2 mg/dL (0.2 - 1); WBC,URINE (MAN) >50 /HPF (0-5)
[2025-01-10 23:11] LABS: POTASSIUM 3.2 mmol/L (3.5-5.1)
[2025-01-10 23:12] LABS: ANION GAP 15.2 mmol/L (8-16); BILIRUBIN,TOTAL 0.5 mg/dL (0.2-1.2); CALCIUM 9.6 mg/dL (8.4-10.2); CREATININE, SERUM 0.81 mg/dL (0.72-1.25); TOTAL PROTEIN 7.1 g/dL (6.5-8.1)
[2025-01-10 23:27] LABS: ALBUMIN 4.1 g/dL (3.5-5.0); ALBUMIN/GLOBULIN RATIO 1.4 (0.8-2.0)
[2025-01-10] MEDS ORDERED: CEFTRIAXONE 1 GM VIAL ONE (23:31)
[2025-01-10] MEDS: SODIUM CHLORIDE 0.9% 1000ML 1,000 ML IV ONE (23:35)
[2025-01-10] MEDS ORDERED: IOPAMIDOL 370 MG/ML 100 ML INFUS..BTL INJ ONE (23:40)
[2025-01-10] MEDS ORDERED: SODIUM CHLORIDE 0.9% 100 ML ONE (23:40)
[2025-01-11] MEDS ORDERED: PYRIDIUM200 MG PO (00:42)
[2025-01-11] MEDS ORDERED: ONDANSETRON ODT4 MG SL (00:42)
[2025-01-11 00:58] VITALS: PULSE 78
[2025-01-11 01:05] VITALS: BP 131/95; O2SAT 94
== END 2025-01-11 01:06 | disposition home or self-care (01) ==
LOC: ER 22:22
DX: R30.0 Dysuria (principal); N30.91 Cystitis, unspecified with hematuria; I10 Essential (primary) hypertension; E78.5 Hyperlipidemia, unspecified; Z85.51 Personal history of malignant neoplasm of bladder
CPT/HCPCS: 36415; 74178; 80053; 81001; 85025; 87086; 87186; 99284; J0696; J7030; J7050; Q9967

== ENCOUNTER 2025-05-26 00:50 | Inpatient (IN) | payer OTHER ==
[2025-05-26] VITALS (11 sets, daily range): BP systolic 115–125; BP diastolic 75–82; PULSE 76–100; RESP 16–22; TEMP 98.7–100.8; O2SAT 94–100
[~2025-05-26] VITALS: Ht 165.1 cm; Wt 99.8 kg
[~2025-05-26 00:50] MED LIST changes: +ONDANSETRON ODT4 MG SL; +PYRIDIUM200 MG PO
[2025-05-26 01:31] LABS: BASOPHILS % 0.2 % (0.0-1.0); EOSINOPHILS % 0.7 % (0.0-6.0); LYMPHOCYTES % 9.9 % (18.0-39.1); MONOCYTES % 8.1 % (4.4-11.3); NEUTROPHILS % 80.2 % (38.7-80.0); RED CELL DISTRIBUTION WIDTH 14.7 % (11.7-14.4)
[2025-05-26] MEDS: ACETAMINOPHEN 325 MG TAB PO ONE (01:40)
[2025-05-26] MEDS: SODIUM CHLORIDE 0.9% 1000ML 1,000 ML IV ONE (01:41)
[2025-05-26 01:52] LABS: EST GLOMERULAR FILTRATION RATE 71.0 ML/MIN (>=60)
[2025-05-26] MEDS ORDERED: IOPAMIDOL 370 MG/ML 100 ML INFUS..BTL INJ ONE (02:06)
[2025-05-26 02:28] LABS: LEUKOCYTE ESTERASE ,URINE 1+ (NEGATIVE); PROTEIN,URINE DIPSTICK 1+ (NEGATIVE)
[2025-05-26 02:29] LABS: URINE UROBILINOGEN 1 mg/dL (0.2 - 1)
[2025-05-26 02:43] LABS: EPITHELIAL CELLS,URINE FEW /LPF; WBC,URINE (MAN) >50 /HPF (0-5)
[2025-05-26] MEDS ORDERED: DEXTROSE 50% SYRINGE 50 ML IV PRN (03:30)
[2025-05-26] MEDS ORDERED: ONDANSETRON HCL INJ 2MG/ML 2ML 2 MG/ML VIAL IV PRN (03:30)
[2025-05-26] MEDS ORDERED: POLYETHYLENE GLYCOL 3350 17 GM PACK PO PRN (04:30)
[2025-05-26] MEDS ORDERED: LABETALOL HCL 5 MG/ML 20ML VIAL IV PRN (04:30)
[2025-05-26] MEDS: INSULIN REGULAR, HUMAN 100 UNIT/1 ML SQ SCH (07:30)
[2025-05-26] MEDS: PIPERACILLIN/TAZOBACTAM 3.375 GM VIAL ONE (09:06)
[2025-05-26] MEDS: DOCUSATE SODIUM 100 MG CAP PO SCH (09:08)
[2025-05-26] MEDS: FINASTERIDE 5 MG TAB PO ONE (11:15)
[2025-05-26] MEDS: METFORMIN HCL 500 MG TAB PO ONE (12:09)
[2025-05-26] MEDS: TAMSULOSIN HCL 0.4 MG CAP PO ONE (12:09)
[2025-05-26] MEDS: HYDROCHLOROTHIAZIDE 25 MG TAB PO ONE (12:10)
[2025-05-26] MEDS: ATORVASTATIN 40 MG TAB PO SCH (20:58)
[2025-05-26] MEDS: AMLODIPINE BESYLATE 10 MG TAB PO SCH (21:02)
[2025-05-26] MEDS: SODIUM CHLORIDE 0.9% 1000ML 1,000 ML IV SCH (23:58)
[2025-05-27] VITALS (9 sets, daily range): BP systolic 108–137; BP diastolic 72–94; PULSE 65–86; RESP 16–21; TEMP 97.8–98.5; O2SAT 94–100
[2025-05-27 05:42] LABS: BASOPHILS % 0.6 % (0.0-1.0); EOSINOPHILS % 3.7 % (0.0-6.0); LYMPHOCYTES % 24.3 % (18.0-39.1); MONOCYTES % 15.7 % (4.4-11.3); NEUTROPHILS % 53.2 % (38.7-80.0); RED CELL DISTRIBUTION WIDTH 14.6 % (11.7-14.4)
[2025-05-27 06:21] LABS: EST GLOMERULAR FILTRATION RATE 100.0 ML/MIN (>=60)
[2025-05-27 06:39] LABS: CHOL/HDL RATIO 4.9 (3.9-4.7); LDL CHOLESTEROL 107.0 MG/DL (60-130); PHOSPHORUS 4.4 MG/DL (2.3-4.7)
[2025-05-27] MEDS ORDERED: HYDROCHLOROTHIAZIDE 25 MG TAB PO SCH (09:00)
[2025-05-27] MEDS: PANTOPRAZOLE SOD 40 MG TABEC PO SCH (09:45)
[2025-05-27] MEDS: TAMSULOSIN HCL 0.4 MG CAP PO SCH (09:45)
[2025-05-27] MEDS: FINASTERIDE 5 MG TAB PO SCH (09:46)
[2025-05-27] MEDS: LEVOTHYROXINE SODIUM 50 MCG TAB PO SCH (09:47)
[2025-05-27] MEDS: METFORMIN HCL 500 MG TAB PO SCH (09:47)
[2025-05-27] MEDS: ACETAMINOPHEN 325 MG TAB PO PRN (10:20)
[2025-05-27] MEDS: POTASSIUM CHLORIDE 10MEQ EA PO ONE (10:21)
[2025-05-28] VITALS (7 sets, daily range): BP systolic 114–127; BP diastolic 85–93; PULSE 67–77; RESP 16–20; TEMP 97.7–98.1; O2SAT 95–100
[2025-05-28 06:03] LABS: EST GLOMERULAR FILTRATION RATE 102.0 ML/MIN (>=60)
[2025-05-28] MEDS ORDERED: CEFUROXIME250 MG PO (15:00)
== END 2025-05-28 19:05 | disposition home or self-care (01) | DRG 728 ==
LOC: ER 00:55 → ERHOLD 03:16 → MED/SURG 03:50 → OBSVTOIN 05-27 10:23
PROVIDERS: ADMIT Internal Medicine; ATTEND Internal Medicine
DX: N41.9 Inflammatory disease of prostate, unspecified (principal); N39.0 Urinary tract infection, site not specified; N40.1 Benign prostatic hyperplasia with lower urinary tract symptoms; B96.1 Klebsiella pneumoniae [K. pneumoniae] as the cause of diseases classified elsewhere; N20.0 Calculus of kidney; E87.6 Hypokalemia; I10 Essential (primary) hypertension; E11.65 Type 2 diabetes mellitus with hyperglycemia; E03.9 Hypothyroidism, unspecified; E78.5 Hyperlipidemia, unspecified; R31.29 Other microscopic hematuria; E66.9 Obesity, unspecified; Z68.36 Body mass index [BMI] 36.0-36.9, adult; Z79.82 Long term (current) use of aspirin; Z79.890 Hormone replacement therapy; Z79.51 Long term (current) use of inhaled steroids; Z79.84 Long term (current) use of oral hypoglycemic drugs; Z90.49 Acquired absence of other specified parts of digestive tract; Z87.891 Personal history of nicotine dependence; Z83.3 Family history of diabetes mellitus
CPT/HCPCS: 36415; 71045; 74177; 80048; 80053; 80061; 81001; 82948; 83036; 83605; 83735; 84100; 84439; 84443; 84484; 85025; 87040; 87086; 87186; 93005; 94799; 99284; G0378; J0696; J2470; J2543; J7030; Q9967

== ENCOUNTER 2025-06-26 22:03 | Emergency (ER) | payer OTHER ==
[~2025-06-26] VITALS: Ht 165.1 cm; Wt 99.8 kg
[~2025-06-26 22:03] MED LIST changes: +CEFUROXIME250 MG PO
[2025-06-26] MEDS: ACETAMINOPHEN 325 MG TAB PO STA (22:43)
[2025-06-26 22:44] LABS: BASOPHILS % 0.3 % (0.0-1.0); EOSINOPHILS % 1.0 % (0.0-6.0); LYMPHOCYTES % 10.1 % (18.0-39.1); MONOCYTES % 6.9 % (4.4-11.3); NEUTROPHILS % 81.3 % (38.7-80.0); RED CELL DISTRIBUTION WIDTH 14.1 % (11.7-14.4)
[2025-06-26 23:05] LABS: EST GLOMERULAR FILTRATION RATE 100.0 ML/MIN (>=60)
[2025-06-26 23:48] LABS: CORONAVIRUS COVID-19 AG NEGATIVE (NEGATIVE)
[2025-06-27] VITALS: PULSE 100; RESP 14; TEMP 100
[2025-06-27] MEDS ORDERED: IOPAMIDOL 370 MG/ML 100 ML INFUS..BTL INJ ONE (00:02)
[2025-06-27 00:17] LABS: LEUKOCYTE ESTERASE ,URINE SMALL (NEGATIVE); PROTEIN,URINE DIPSTICK NEGATIVE (NEGATIVE); URINE UROBILINOGEN 0.2 mg/dL (0.2 - 1)
[2025-06-27 00:18] LABS: EPITHELIAL CELLS,URINE FEW /LPF; WBC,URINE (MAN) 21-50 /HPF (0-5)
[2025-06-27] MEDS ORDERED: CEFUROXIME250 MG PO (00:58)
[2025-06-27 01:18] VITALS: BP 119/75; PULSE 96; RESP 18; TEMP 99.7; O2SAT 95
== END 2025-06-27 01:23 | disposition home or self-care (01) ==
LOC: ER 22:08
DX: R50.9 Fever, unspecified (principal); N39.0 Urinary tract infection, site not specified; K57.90 Diverticulosis of intestine, part unspecified, without perforation or abscess without bleeding; I72.3 Aneurysm of iliac artery; R16.0 Hepatomegaly, not elsewhere classified; K76.0 Fatty (change of) liver, not elsewhere classified; R94.31 Abnormal electrocardiogram [ECG] [EKG]
CPT/HCPCS: 36415; 74177; 80053; 81001; 82550; 83605; 83690; 84484; 85025; 87040; 87086; 87186; 87428; 93005; 99284; Q9967